=== PATIENT | male | born 1980 | race Caucasian/White ===

== ENCOUNTER 2017-07-24 12:01 | Emergency (ER) | payer OTHER ==
--- NOTE | 2017-07-24 13:02 | UC ---
Throat Pain/Nasal Adan HPI - HPI Summary HPI Summary: BEGINNING LAST NIGHT SORE THROAT, EAR ACHE, FEVER. CONCERN THAT HE HAS THE FLU. NO RASHES, NO ABDOMINAL PAIN - History of Current Complaint Chief Complaint: UCGeneralIllness Stated Complaint: FLU SYMPTOMS Time Seen by Provider: 07/24/17 12:35 Hx Obtained From: Patient Onset/Duration: Lasting Hours, Still Present Severity: Moderate Cough: None Associated Signs & Symptoms: Positive: Hoarseness, Nasal Discharge, Fever - Epiglottits Risk Factors Epiglottis Risk Factors: Negative - Allergies/Home Medications Allergies/Adverse Reactions: Allergies Allergy/AdvReac Type Severity Reaction Status Date / Time No Known Allergies Allergy Verified 07/24/17 12:15 PMH/Surg Hx/FS Hx/Imm Hx Previously Healthy: Yes - Surgical History Surgical History: Yes Surgery Procedure, Year, and Place: 2001 - varicoseal. 2013, 2014 - R shoulder - Family History Known Family History: Negative: Respiratory Disease - Social History Occupation: Employed Full-time Lives: With Family Alcohol Use: Occasionally Substance Use Type: None Smoking Status (MU): Never Smoked Tobacco Review of Systems Constitutional: Fever, Chills, Fatigue Skin: Negative Eyes: Negative ENT: Sore Throat, Nasal Discharge Respiratory: Negative Cardiovascular: Negative Gastrointestinal: Negative Genitourinary: Negative Motor: Negative Neurovascular: Negative Musculoskeletal: Negative Neurological: Negative Psychological: Negative All Other Systems Reviewed And Are Negative: Yes Physical Exam Triage Information Reviewed: Yes Appearance: No Pain Distress, Well-Nourished, Ill-Appearing Vital Signs: Initial Vital Signs Temp 101.6 F 07/24/17 12:16 Pulse 95 07/24/17 12:16 Resp 20 07/24/17 12:16 BP 126/72 07/24/17 12:16 Pulse Ox 100 07/24/17 12:16 Vital Signs Reviewed: Yes Eye Exam: Normal ENT: Positive: Hearing grossly normal, Pharyngeal erythema, TMs normal Dental Exam: Normal Neck exam: Normal Neck: Positive: Supple Respiratory Exam: Normal Respiratory: Positive: Chest non-tender, Lungs clear, Normal breath sounds, No respiratory distress, No accessory muscle use Cardiovascular Exam: Normal Cardiovascular: Positive: RRR, No Murmur, Pulses Normal Abdominal Exam: Normal Musculoskeletal Exam: Normal Musculoskeletal: Positive: Strength Intact, ROM Intact Neurological Exam: Normal Psychological Exam: Normal Skin Exam: Normal Throat Pain/Nasal Course/Dx - Differential Dx/Diagnosis Differential Diagnosis/HQI/PQRI: Influenza, Pharyngitis, Sinusitis, Tonsillitis , URI Provider Diagnoses: STREP TONSILLITIS Discharge - Discharge Plan Condition: Stable Disposition: HOME Prescriptions: Amoxicillin/Clavulanate TAB* [Augmentin TAB 875*] 875 mg PO BID #20 tab Patient Education Materials: Strep Throat (ED) Referrals: [facility] [Outside] No Primary Care Phys,NOPCP [Primary Care Provider] - Additional Instructions: PRIMARY CARE: There are four major types of clinical preventive care: immunizations, screening , behavioral counseling (sometimes referred to as lifestyle changes), and chemoprevention. All four apply throughout the life span. It is important to establish and to have access to a Primary Care Physician, not only for follow- up regrding acute and chronic problems, but also for preventative care.
== END 2017-07-24 13:05 | disposition home or self-care (01) ==
LOC: UCEAST 12:01
DX: J03.00 Acute streptococcal tonsillitis, unspecified (principal)
CPT/HCPCS: 87502; 87651; 99202; G0463

== ENCOUNTER 2018-02-15 09:02 | Emergency (ER) | payer OTHER ==
[2018-02-15 09:12] VITALS: BP 110/74
== END 2018-02-15 09:50 | disposition left against medical advice (07) ==
LOC: UCEAST 09:02
DX: J02.9 Acute pharyngitis, unspecified (principal); R09.89 Other specified symptoms and signs involving the circulatory and respiratory systems; Z53.21 Procedure and treatment not carried out due to patient leaving prior to being seen by health care provider

== ENCOUNTER 2018-08-15 18:31 | Emergency (ER) | payer OTHER ==
[2018-08-15 20:45] LABS: ABS Basophils 0 10^3/ul (0-0.2); ABS Eosinophils 0.2 10^3/ul (0-0.6); ABS Lymphocytes 2.3 10^3/ul (1.0-4.8); ABS Monocytes 0.4 10^3/ul (0-0.8); ABS Neutrophils 3.3 10^3/ul (1.5-7.7); ABS Nucleated RBC 0 10^3/ul; Eosinophil % 2.4 % (0-6); Hematocrit 42 % (42-52); Hemoglobin 14.7 g/dl (14.0-18.0); Lymphocyte % 37.6 % (25-47); Mean Corpuscular HGB Conc 35 g/dl (31-36); Mean Corpuscular Hemoglobin 32 pg (27-31); Mean Corpuscular Volume 91 fL (80-94); Mean Platelet Volume 7.6 um3 (7.4-10.4); Nucleated Red Blood Cells % 0.3; Platelet Count 250 10^3/ul (150-450); Red Blood Count 4.64 10^6/ul (4.00-5.40); Red Cell Distribution Width 13 % (10.5-15); White Blood Count 6.2 10^3/ul (3.5-10.8)
[2018-08-15 21:05] LABS: EGFR Non-African American 132.7 (>60)
--- NOTE | 2018-08-15 22:16 | ED ---
HPI Chest Pain - HPI Summary HPI Summary: This pt is a 37 y/o male presenting to [facility] c/o intermittent chest pain for the past 1.5 weeks. Pt reports that over the past 1.5 weeks he has had 4 episodes of chest tightness. He describes it as "I really feel my heart" and "pounding feeling." He states that this acute pain only lasts 60-90 seconds and then dissipates. Pt notes that during these episodes he feels like he is breathing heavily. He reports these episodes happen when doing "something physical." Episodes never happens while at rest. Denies nausea, vomiting, diaphoresis, syncope with these episodes. Today at around 15:00 pt jogged about 15 feet to his car and had an episode of chest tightness accompanied by lightheadedness; he reports this episode as the mildest of them all. Denies headache, cold symptoms, abd pain, urinary symptoms, constipation, diarrhea, recent swelling. He notes he is an active person typically. Pt denies sleep disturbance or change in diet. He reports he has two little kids. Denies any PMHx. Recently pulled groin muscle. Denies tobacco or drug use. Family hx of great grandfather and grandfather with MIs, and father with high cholesterol. - History of Current Complaint Chief Complaint: EDChestPainROMI Time Seen by Provider: 08/15/18 22:08 Hx Obtained From: Patient Onset/Duration: Started Weeks Ago - 1.5, Still Present Timing: Intermittent, Lasting Weeks - 1.5 Current Severity: Mild Pain Intensity: 1 Pain Scale Used: 0-10 Numeric Chest Pain Location: Diffuse Chest Pain Radiates: No Character: Pounding, Tightness Aggravating Factor(s): Nothing Alleviating Factor(s): Nothing Associated Signs and Symptoms: Positive: Chest Pain, Lightheadedness, Palpitations. Negative: Shortness of Breath, Swelling, Fever, Diaphoresis, Nausea, Abdominal Pain, Calf Pain/Swelling, Vomiting, Edema, Other: - syncope, headache, cold symptoms, abd pain, urinary symptoms, constipation, diarrhea - Allergy/Home Medications Allergies/Adverse Reactions: Allergies Allergy/AdvReac Type Severity Reaction Status Date / Time No Known Allergies Allergy Verified 08/15/18 18:41 PMH/Surg Hx/FS Hx/Imm Hx Endocrine/Hematology History: Denies: Hx Diabetes Cardiovascular History: Denies: Hx Hypertension - Surgical History Surgery Procedure, Year, and Place: 2002 - varicoseal. 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 Alcohol Use: Occasionally Substance Use Type: Reports: None Smoking Status (MU): Never Smoked Tobacco Review of Systems Negative: Fever, Chills, Other - sleep disturbance Positive: Palpitations, Chest Pain Negative: Shortness Of Breath Negative: Abdominal Pain, Vomiting, Diarrhea, Nausea, Other - constipation Positive: no symptoms reported, see HPI Negative: Edema Neurological: Other - POS: lightheadedness Negative: Syncope All Other Systems Reviewed And Are Negative: Yes Physical Exam - Summary Physical Exam Summary: Appearance: Well-appearing, Well-nourished, lying in bed comfortably Skin: Warm, dry, no obvious rash Eyes: sclera anicteric, no conjunctival pallor ENT: mucous membranes moist, pharynx appears normal Neck: Supple, nontender Respiratory: Clear to auscultation, no signs of respiratory distress Cardiovascular: Normal S1, S2. No murmurs. Normal distal pulses in tibial and radial bilaterally. Abdomen: Soft, nontender, normal active bowel sounds present Musculoskeletal: Normal, Strength/ROM Intact Neurological: A&Ox3, awake and alert, mentation is normal, speech is fluent and appropriate Psychiatric: affect is normal, does not appear anxious or depressed Triage Information Reviewed: Yes Vital Signs On Initial Exam: Initial Vitals Temp Pulse Resp BP Pulse Ox 98.5 F 71 16 164/82 100 08/15/18 18:38 08/15/18 18:38 08/15/18 18:38 08/15/18 18:38 08/15/18 18:38 Vital Signs Reviewed: Yes Diagnostics - Vital Signs Vital Signs Temp Pulse Resp BP Pulse Ox 08/15/18 20:30 97.8 F 60 20 139/80 100 08/15/18 18:38 98.5 F 71 16 164/82 100 - Laboratory Lab Results: Lab Results 08/15/18 08/15/18 08/15/18 Range/Units 20:33 20:33 20:33 WBC 6.2 (3.5-10.8) 10^3/ul RBC 4.64 (4.00-5.40) 10^6/ul Hgb 14.7 (14.0-18.0) g/dl Hct 42 (42-52) % MCV 91 (80-94) fL MCH 32 H (27-31) pg MCHC 35 (31-36) g/dl RDW 13 (10.5-15) % Plt Count 250 (150-450) 10^3/ul MPV 7.6 (7.4-10.4) um3 Neut % (Auto) 52.3 (38-83) % Lymph % (Auto) 37.6 (25-47) % Coffee % (Auto) 7.1 H (0-7) % Eos % (Auto) 2.4 (0-6) % Baso % (Auto) 0.6 (0-2) % Absolute Neuts (auto) 3.3 (1.5-7.7) 10^3/ul Absolute Lymphs (auto) 2.3 (1.0-4.8) 10^3/ul Absolute Monos (auto) 0.4 (0-0.8) 10^3/ul Absolute Eos (auto) 0.2 (0-0.6) 10^3/ul Absolute Basos (auto) 0 (0-0.2) 10^3/ul Absolute Nucleated RBC 0 10^3/ul Nucleated RBC % 0.3 Sodium 139 (135-145) mmol/L Potassium 3.9 (3.5-5.0) mmol/L Chloride 103 (101-111) mmol/L Carbon Dioxide 30 (22-32) mmol/L Anion Gap 6 (2-11) mmol/L BUN 18 (6-24) mg/dL Creatinine 0.68 (0.67-1.17) mg/dL Est GFR ( Amer) 160.6 (>60) Est GFR (Non-Af Amer) 132.7 (>60) BUN/Creatinine Ratio 26.5 H (8-20) Glucose 129 H (70-100) mg/dL Lactic Acid 0.8 (0.5-2.0) mmol/L Calcium 9.2 (8.6-10.3) mg/dL Total Bilirubin 0.40 (0.2-1.0) mg/dL AST 17 (13-39) U/L ALT 10 (7-52) U/L Alkaline Phosphatase 49 (34-104) U/L Troponin I 0.00 (<0.04) ng/mL Total Protein 7.3 (6.4-8.9) g/dL Albumin 4.6 (3.2-5.2) g/dL Globulin 2.7 (2-4) g/dL Albumin/Globulin Ratio 1.7 (1-3) Result Diagrams: 08/15/18 20:33 08/15/18 20:33 Lab Statement: Any lab studies that have been ordered have been reviewed, and results considered in the medical decision making process. - Radiology Chest XR Xray Interpretation: No Acute Changes - normal chest XR Radiology Interpretation Completed By: ED Physician - EKG 18:43 Cardiac Rate: NL - at 64 bpm EKG Rhythm: Sinus Rhythm EKG Interpretation: No STEMI. 22:22 Cardiac Rate: NL - at 65 bpm EKG Rhythm: Sinus Rhythm EKG Interpretation: no STEMI. 1 Cardiac Rate: NL EKG Rhythm: Sinus Rhythm Chest Pain Course/Dx - Course Course Of Treatment: This is a 37-year-old man with a history of intermittent chest pain lasting perhaps a minute or 2. He has had 3-4 bouts of this over the past week and a half. After his acute pain resolves he does have some mild tightness to persist for a few hours. He has minimal risk factors, a possible family history as well as remote smoking. His EKG shows repolarization abnormalities that have been static on repeat tracing. His troponin assays are negative 2. I have given him an HEART score of 3. I went over all this with the patient reinforcing the need for follow-up with his primary care doctor as well as returning here if his symptoms worsen in the interim. - Diagnoses Provider Diagnoses: Atypical chest pain Discharge - Sign-Out/Discharge Documenting (check all that apply): Patient Departure - Discharge - Discharge Plan Condition: Good Disposition: HOME Patient Education Materials: Chest Pain (ED) Referrals: Kalpesh Bolanos MD [Primary Care Provider] - 1 Week - Attestation Statements Document Initiated by Scribe: Yes Documenting Scribe: Kate Bear Provider For Whom Scribe is Documenting (Include Credential): Pantera Wick MD Scribe Attestation: Kate Charles, scribed for Pantera Wick MD on 08/16/18 at 0134.
[2018-08-16 00:53] VITALS: BP 132/79
--- NOTE | 2018-08-16 07:33 | RAD ---
INDICATION: Chest pain. COMPARISON: There are no relevant prior studies available for comparison. TECHNIQUE: Dual-energy PA and lateral views of the chest were obtained. FINDINGS: The heart is within normal limits in size. Mediastinal and hilar contours appear within normal limits. The lungs are hyperinflated and clear. No pleural effusion or pneumothorax is seen. IMPRESSION: NO EVIDENCE FOR ACTIVE CARDIOPULMONARY DISEASE. R0
== END 2018-08-16 00:52 | disposition home or self-care (01) ==
LOC: ED 18:31
DX: R07.89 Other chest pain (principal); R42 Dizziness and giddiness; R00.2 Palpitations
CPT/HCPCS: 36415; 71046; 80053; 83605; 84484; 85025; 93005; 99282